=== PATIENT | female | born 1965 | race Caucasian/White ===

== ENCOUNTER 2019-04-13 15:39 | Emergency (ER) | payer MEDICAID ==
[~2019-04-13] VITALS: Ht 157.5 cm; Wt 179.2 kg
[2019-04-13 16:25] VITALS: Ht 157.5 cm; Wt 179.2 kg
[2019-04-13 20:50] VITALS: BP 164/78
== END 2019-04-13 20:30 | disposition home or self-care (01) ==
LOC: ED 15:39
DX: L03.116 Cellulitis of left lower limb (principal); L03.115 Cellulitis of right lower limb; I10 Essential (primary) hypertension; E66.01 Morbid (severe) obesity due to excess calories
CPT/HCPCS: 82962; J0690; J1885